=== PATIENT | male | born 1970 | race Asian ===

== ENCOUNTER 2021-12-04 11:32 | Emergency (ER) | payer OTHER ==
[~2021-12-04] VITALS: Ht 165.1 cm; Wt 75.0 kg
[2021-12-04] MEDS ORDERED: VALA1TAB5 PO (13:45)
[2021-12-04 14:10] VITALS: BP 137/89
== END 2021-12-04 14:18 | disposition home or self-care (01) ==
LOC: M ED 11:32
DX: B02.39 Other herpes zoster eye disease (principal); I10 Essential (primary) hypertension; E78.5 Hyperlipidemia, unspecified